=== PATIENT | female | born 1995 | race Caucasian/White ===

== ENCOUNTER 2021-06-10 12:34 | Emergency (ER) | payer OTHER ==
[~2021-06-10] VITALS: Ht 152.4 cm; Wt 63.5 kg
[2021-06-10 12:36] VITALS: BP 124/73
== END 2021-06-10 14:36 | disposition left against medical advice (07) ==
LOC: EDH 12:34
DX: M54.9 Dorsalgia, unspecified (principal); Z53.21 Procedure and treatment not carried out due to patient leaving prior to being seen by health care provider